=== PATIENT | male | born 1975 | race Caucasian/White ===

== ENCOUNTER 2019-12-04 16:20 | Emergency (ER) | payer BC ==
[2019-12-04 17:03] LABS: Bacteria/HPF None Seen HPF (None Seen); Bilirubin Negative (Negative); Blood, Urine 3+ (Negative); Clarity Extra Turbid (Clear); Glucose, Urine (Dipstick) Normal (Negative); Leukocyte Negative Leu/uL (Negative); Nitrite Negative (Negative); Protein, Urine (Dipstick) 30 mg/dL (Neg-Trace); RBC/HPF Greater than 50 HPF (0-3); Squamous Epithelial None Seen HPF (0-3); Urobilinogen Normal mg/dL (Less than 2)
[2019-12-04] MEDS ORDERED: Ondansetron PF 4 MG/2 ML Vial ONE ×2 (17:36→18:32)
[2019-12-04] MEDS ORDERED: Morphine 4 MG/ML VIAL ONE (17:36)
[2019-12-04] MEDS ORDERED: Ketorolac Tromethamine 30 MG/ML VIAL ONE (17:36)
[2019-12-04 17:40] LABS: #Basophils 0.1 thou/uL (0.0-0.2); #Lymphocytes 0.7 thou/uL (1.20-3.40); #Monocytes 0.6 thou/uL (0.11-0.59); #Neutrophils 8.5 thou/uL (1.40-6.50); %Basophils 0.7 % (0.0-1.0); %Eosinophils 0.2 % (0.0-10.0); %Lymphocytes 7.3 % (21.0-51.0); %Monocytes 6.2 % (0.0-10.0); %Neutrophils 85.6 % (42.0-75.0); Hemoglobin 14.3 g/dL (14.0-18.0); Mean Corpuscular HGB CONC 32.2 g/dL (32.0-36.0); Mean Corpuscular Hemoglobin 29.1 pg (27.0-31.0); Mean Corpuscular Volume 90.4 fL (78.0-98.0); Mean Platelet Volume 8.4 fL (7.4-10.4); Platelet Count 221 thou/uL (130-400); RBC Distribution Width 11.6 % (11.5-14.5); White Blood Cell (WBC) Count 9.9 thou/uL (4.8-10.8)
[2019-12-04 17:49] LABS: ALT (SGPT) 15 U/L (8-55); AST (SGOT) 16 U/L (5-34); Albumin 4.4 g/dL (3.5-5.0); Alkaline Phosphatase 79 U/L (40-110); Anion Gap 14 mmol/L (10-20); BUN (Urea Nitrogen) 12 mg/dL (8.9-20.6); Bilirubin, Total 0.8 mg/dL (0.2-1.2); Calc. Creatinine Clearance 0 mL/min (70-130); Calcium 9.8 mg/dL (7.8-10.44); Carbon Dioxide 28 mmol/L (22-29); Chloride 103 mmol/L (98-107); Estimated GFR-MDRD 64; Globulin 2.6 g/dL (2.4-3.5); Glucose 149 mg/dL (70-105); Potassium 3.5 mmol/L (3.5-5.1); Sodium 141 mmol/L (136-145)
--- NOTE | 2019-12-04 18:43 | CT ---
CT ABDOMEN AND PELVIS WITHOUT CONTRAST: 12/04/19 COMPARISON: None. HISTORY: Hematuria and right flank pain. History of kidney stones. TECHNIQUE: Multiple contiguous axial images were obtained in a CT of the abdomen and pelvis without contrast. Sa gittal and coronal reformats were performed. FINDINGS: There is mild right hydronephrosis and hydroureter. A nonobstructing 3 mm calcification is seen in th e right kidney. No calcification is seen in the right ureter or the urinary bladder. No left hydrone phrosis is seen. No left renal calcifications are seen. The liver, gallbladder, adrenal gland, spleen, and pancreas are unremarkable, although evaluation is limited without IV contrast. No free air or free fluid are seen in the abdomen or pelvis. Mild strand ing changes are seen surrounding the right kidney. The large and small bowel are unremarkable. Postsurgical changes are seen in the stomach. The appendi x is normal. No abdominal or pelvic lymphadenopathy are seen. Mild degenerative changes are seen in the spine. The visualized inferior thorax and abdominal wall so ft tissues are unremarkable. IMPRESSION: 1. There is mild right sided hydronephrosis. This may be secondary to a recently passed stone. N o stone is seen within the urinary bladder or right ureter. 2. Nonobstructing right renal calcification. POS: EAA
== END 2019-12-04 19:51 | disposition home or self-care (01) ==
LOC: ERS 16:20
DX: N13.2 Hydronephrosis with renal and ureteral calculous obstruction (principal); I10 Essential (primary) hypertension; G43.909 Migraine, unspecified, not intractable, without status migrainosus; F41.9 Anxiety disorder, unspecified; F32.9 Major depressive disorder, single episode, unspecified; Z79.899 Other long term (current) drug therapy
CPT/HCPCS: 36415; 74176; 80053; 81003; 81015; 85025; 87086; 94760; 96361; 96374; 96375; 96376; J1885; J2270; J2405